=== PATIENT | female | born 1965 | race African-American/Black ===

== ENCOUNTER 2017-06-16 18:32 | Inpatient (IN) ==
[2017-06-16] MEDS: DEXTROSE 5% NACL 0.9% 1,000 ML IV SCH (21:17)
[2017-06-16] MEDS ORDERED: MORPHINE 2 MG/1 ML SYRINGE IV PRN (22:34)
[2017-06-16] MEDS: ZALEPLON 5 MG CAPSULE PO PRN (23:09)
[2017-06-16] MEDS: VENLAFAXINE 75 MG TABLET PO SCH (23:09)
[2017-06-16] MEDS: NITROGLYCERIN 2% OINT 1 INCH/GM PACK TOP SCH (23:09)
[2017-06-17] MEDS: DEXTROSE 5% NACL 0.9% 1,000 ML IV SCH ×3 (04:53→13:00)
[2017-06-17] MEDS: NITROGLYCERIN 2% OINT 1 INCH/GM PACK TOP SCH ×3 (06:41→18:30)
[2017-06-17 07:57] LABS: Basophils % 0.9 % (0.0-0.8); Eosinophils # 0.2 10*3/uL (0.0-0.87); Eosinophils % 5.3 % (0.00-10.9); Hemoglobin 11.6 GM/DL (12.0-16.0); Lymphocytes # 1.8 10*3/uL (1.4-4.0); Lymphocytes % 41.9 % (21.3-54.2); Mean Corpuscular HGB Conc 34.1 GM/DL (32-36); Mean Corpuscular Hemoglobin 32 PG (27-34); Mean Corpuscular Volume 92.9 FL (87-102); Mean Platelet Volume 10.7 FL (9.6-12.0); Monocytes # 0.6 10*3/uL (0.11-0.8); Monocytes % 12.7 % (1.7-12.7); Neutrophils # 1.7 10*3/uL (1.4-7.4); Neutrophils % 39.2 % (38.7-73.9); Platelet Count 280 T/CUMM (130-400); Red Blood Count 3.66 MC/CUMM (3.8-5.5); Red Cell Distribution Width 11.9 % (9.3-17.3); White Blood Count 4.3 T/CUMM (4-12)
[2017-06-17 08:17] LABS: Calcium 8.7 MG/DL (8.5-10.1); Potassium 4.4 MMOL/L (3.5-5.1)
[2017-06-17 08:23] LABS: Troponin I Only 0.554 NG/ML (0.00-0.045)
[2017-06-17] MEDS: PANTOPRAZOLE 40 MG TABLET PO SCH (09:46)
[2017-06-17] MEDS ORDERED: MAGNESIUM SULF RIDER 2 GM in PREMIX 1 EACH IV PRN (10:04)
[2017-06-17] MEDS ORDERED: diphenhydrAMINE CAP 25 MG CAPSULE PO ONE (10:04)
[2017-06-17] MEDS ORDERED: ASPIRIN 325 MG TABLET PO ONE (10:04)
[2017-06-17] MEDS ORDERED: DIAZEPAM 5 MG TABLET PO ONE (10:04)
[2017-06-17] MEDS ORDERED: POTASSIUM CHLORIDE RIDER 10 MEQ in PREMIX 1 EACH IV PRN (10:04)
[2017-06-17] MEDS ORDERED: diphenhydrAMINE CAP 50 MG CAPSULE ONE (10:12)
[2017-06-17] MEDS ORDERED: LIDOCAINE 2% 20 ML VIAL ONE (10:46)
[2017-06-17] MEDS ORDERED: MIDAZOLAM 2 MG/2 ML VIAL ONE (10:47)
[2017-06-17] MEDS ORDERED: MEPERIDINE 25 MG/1 ML VIAL ONE (10:47)
[2017-06-17] MEDS ORDERED: ONDANSETRON 4 MG/2 ML VIAL ONE (10:51)
[2017-06-17] MEDS ORDERED: HEPARIN 5,000 UNIT/1 ML VIAL ONE (11:07)
[2017-06-17] MEDS ORDERED: SODIUM CHLORIDE 0.9% 1,000 ML IV SCH (12:30)
[2017-06-17] MEDS ORDERED: VENLAFAXINE 75 MG TABLET PO SCH (21:00)
[2017-06-17] MEDS: ZALEPLON 5 MG CAPSULE PO PRN (21:22)
[2017-06-17] MEDS: VENLAFAXINE 75 MG TABLET PO SCH (21:22)
[2017-06-18] MEDS: NITROGLYCERIN 2% OINT 1 INCH/GM PACK TOP SCH ×2 (00:20→06:17)
[2017-06-18 02:28] LABS: Basophils % 0.6 % (0.0-0.8); Eosinophils # 0.2 10*3/uL (0.0-0.87); Eosinophils % 3.9 % (0.00-10.9); Hematocrit 33.6 VOL% (35.7-47.0); Hemoglobin 11.2 GM/DL (12.0-16.0); Immature Granulocytes % 0.2 %; Immature Granulocytes Absolute 0.01 #; Lymphocytes # 1.9 10*3/uL (1.4-4.0); Lymphocytes % 40.2 % (21.3-54.2); Mean Corpuscular HGB Conc 33.3 GM/DL (32-36); Mean Corpuscular Hemoglobin 32 PG (27-34); Mean Corpuscular Volume 94.4 FL (87-102); Mean Platelet Volume 11.6 FL (9.6-12.0); Monocytes # 0.6 10*3/uL (0.11-0.8); Monocytes % 11.6 % (1.7-12.7); Neutrophils # 2.1 10*3/uL (1.4-7.4); Neutrophils % 43.5 % (38.7-73.9); Platelet Count 275 T/CUMM (130-400); Red Blood Count 3.56 MC/CUMM (3.8-5.5); Red Cell Distribution Width 11.7 % (9.3-17.3); White Blood Count 4.8 T/CUMM (4-12)
[2017-06-18 03:11] LABS: Calcium 8.4 MG/DL (8.5-10.1)
[2017-06-18] MEDS: PANTOPRAZOLE 40 MG TABLET PO SCH (08:44)
[2017-06-18 12:03] VITALS: BP 133/77
== END 2017-06-18 12:15 | disposition home or self-care (01) | DRG 287 ==
LOC: EDBD → EDUNIT# → N.ED 18:32 → N.EDINP 19:28 → N.TELEN 20:31
PROVIDERS: ADMIT Internal Medicine Cardiovascular Disease; ATTEND Internal Medicine Cardiovascular Disease
PROC: CLCCHCL (ICD-10-PCS; 2017-06-17 10:45)